=== PATIENT | male | born 1960 | race Caucasian/White ===

== ENCOUNTER 2020-06-14 01:14 | Outpatient (CLI) | payer SELFPAY ==
[2020-06-16 00:12] LABS: SARS-CoV-2 RNA Undetected (Undetected); SARS-CoV-2 Specimen Source Nasopharynx
== END 2020-06-14 01:34 ==
PROVIDERS: Visit Provider Family Medicine
DX: Z11.59 Encounter for screening for other viral diseases (principal)
CPT/HCPCS: U0003